=== PATIENT | female | born 1975 | race Caucasian/White ===

== ENCOUNTER 2017-07-12 06:50 | Emergency (ER) | payer BC ==
[~2017-07-12] VITALS: Ht 160 cm; Wt 76.5 kg
[2017-07-12 06:54] VITALS: Ht 160 cm; Wt 76.5 kg
--- NOTE | 2017-07-12 08:37 | ERD ---
ER Documentation Chief Complaint Chief Complaint cough x 3 days HPI 42-year-old female who presents emergency department for cough for 3 days. Stated that she was prescribed with azithromycin by her primary care physician but she has not started it yet. Denies headache, dizziness, blurry vision, neck pain, difficulty swallowing, shoulder pain, chest, back pain, abdominal pain, nausea, vomiting, constipation, diarrhea, loss of bowel bladder control, urinary symptoms, or possibility of being , recent long travel , recent travel, recent exposure to any illness, recent antibiotic use in the last 3 months, fever, chills, difficulty walking, numbness or tingling sensation. A0. LMP: 06/17/2017. ROS All systems reviewed and are negative except as per history of present illness. Medications Home Meds Active Scripts Acetaminophen* (Tylophen*) 500 Mg Capsule, 1 CAP PO Q6H Y for PAIN AND OR ELEVATED TEMP, #20 CAP Prov:PASILABANJAYAAR F 07/12/17 Prednisone* (Prednisone*) 20 Mg Tab, 40 MG PO DAILY for 5 Days, TAB Prov:PASILABANJAYAAR F 07/12/17 Benzonatate* (Tessalon Perle*) 100 Mg Capsule, 100 MG PO Q8H Y for COUGH, #20 CAP Prov:PASILABANJAYAAR F 07/12/17 Azithromycin* (Zithromax*) 250 Mg Tablet, 250 MG PO .ZPACK DIRECTED, #6 TAB TAKE 500 MG (2 TABS) THE FIRST DAY THEN 250 MG (1 TAB) DAYS 2-5 Prov:PASILABANJAYAAR F 07/12/17 Allergies Allergies: Coded Allergies: No Known Allergy (Unverified , 07/12/17) PMhx/Soc Anesthesia Reaction: No Hx Neurological Disorder: No Hx Respiratory Disorders: No Hx Cardiac Disorders: No Hx Psychiatric Problems: No Hx Miscellaneous Medical Probl: Yes (Thyroid) Hx Alcohol Use: No Hx Substance Use: No Hx Tobacco Use: No Smoking Status: Never smoker Physical Exam Vitals Vital Signs Date Time Temp Pulse Resp B/P Pulse Ox O2 Delivery O2 Flow Rate FiO2 07/12/17 06:54 99.4 78 18 125/81 98 Physical Exam Const: Well-appearing. Not in acute respiratory distress. Head: Atraumatic Eyes: Normal Conjunctiva. Extraocular movement of her eyes within normal limits. No pain in eye movement. ENT: Normal External Ears, Nose and Mouth. Throat: Uvula is midline not displaced. Tonsils are +1 bilaterally without redness and without exudates. Tolerating secretions. Patent airway. Speaks full and clear sentences. Neck: Full range of motion..~ No meningismus. No signs of meningeal irritation. Resp: Clear to auscultation bilaterally Cardio: Regular rate and rhythm, no murmurs Abd: Soft, non tender, non distended. Normal bowel sounds Skin: No petechiae or rashes Back: No midline or flank tenderness Ext: No cyanosis, or edema Neur: Awake and alert Psych: Normal Mood and Affect Procedures/MDM Differential: I have low suspicion for sepsis or severe bacterial or serious bacterial infection, pneumonia, meningitis given that the patient is well- appearing, no signs of meningeal irritation, vital signs does not appears to be sepsis. Final diagnosis: Bronchitis, cough Prescription: Azithromycin. Tessalon. Tylenol. Follow-up with PCP in the next 3-4 days. Come back here in the emergency department for any new symptoms or any worsening of symptoms. All questions and concerns were answered. Patient verbalized understanding and agreed with the plan of care. Hemodynamically stable on discharge. Departure Diagnosis: Primary Impression: Cough Condition: Stable Additional Instructions: Follow-up with PCP in the next 3-4 days. Come back here in the emergency department for any new symptoms or any worsening of symptoms. All questions and concerns were answered. Patient verbalized understanding and agreed with the plan of care. ABENA PINTO Jul 12, 2017 08:37
[2017-07-12] MEDS ORDERED: AZIT250T94 PO (08:39)
[2017-07-12] MEDS ORDERED: PRED20TA PO (08:39)
[2017-07-12] MEDS ORDERED: BENZ100C70 PO (08:39)
[2017-07-12] MEDS ORDERED: ACET500C5 PO (08:40)
== END 2017-07-12 08:46 | disposition home or self-care (01) ==
LOC: FTE 06:50
DX: R05 Cough (principal)
CPT/HCPCS: 99284

== ENCOUNTER 2018-01-01 17:07 | Emergency (ER) | END 2018-01-01 17:35 | disposition home or self-care (01) ==

== ENCOUNTER 2018-01-15 13:05 | Emergency (ER) | END 2018-01-15 16:16 | disposition home or self-care (01) ==

== ENCOUNTER 2018-02-02 17:43 | Emergency (ER) | END 2018-02-02 20:27 | disposition home or self-care (01) ==